=== PATIENT | male | born 1965 | race Caucasian/White ===

== ENCOUNTER 2019-03-13 09:39 | Outpatient (CLI) | payer OTHER ==
--- NOTE | 2019-03-13 13:25 | Ultrasound Report ---
ULTRASOUND ABDOMEN, COMPLETE INDICATION: ELEVATED LIVER ENZYMES/ACUTE ABDOMINAL PAIN. COMPARISON: No relevant prior imaging study available. FINDINGS: Pancreas: No significant abnormality. Abdominal Aorta: No significant abnormality. IVC: No significant abnormality. Liver: The liver is normal size and contour. The liver parenchyma is slightly echogenic suggestive of mild diffuse fatty infiltration or other parenchymal disease.. There is an ill-defined area of decre ased echogenicity near the gallbladder fossa measuring 3.4 x 3.8 cm. This has the appearance of focal fatty sparing over mass. Normal hepatopedal blood flow in the main portal vein. Gallbladder: No significant abnormality. Bile ducts: No significant abnormality. Common bile duct measures 4 mm. Kidneys: Right: 10.3 cm in length. No significant abnormality. Left: 10.7 cm in length. No signif icant abnormality. Spleen: No significant abnormality. Free fluid: None. Additional Findings: None. IMPRESSION: Slightly echogenic liver parenchyma consistent with fatty infiltration or other parenchymal disease. There appears to be a focal area of fatty sparing near the gallbladder fossa. Otherwise, unremarkable abdominal ultrasound.. Signer Name: Christopher Alfred Jr, MD Signed: 03/13/2019 1:20 PM Workstation Name: [id number]
== END 2019-03-13 09:40 | disposition home or self-care (01) ==
LOC: US 09:39
DX: R10.9 Unspecified abdominal pain (principal); R74.8 Abnormal levels of other serum enzymes
CPT/HCPCS: 76700